=== PATIENT | female | born 1945 | race Caucasian/White ===

== ENCOUNTER 2020-02-07 09:16 | Emergency (ER) | payer MEDICARE, BC ==
--- NOTE | 2020-02-07 09:41 | EDM.PDOC ---
ED HPI GENERAL MEDICAL PROBLEM - General Chief Complaint: Upper Extremity Injury/Pain Stated Complaint: HURT ARM 02/07/20 Time Seen by Provider: 02/07/20 09:37 Source of Information: Reports: Patient History Limitations: Reports: No Limitations - History of Present Illness INITIAL COMMENTS - FREE TEXT/NARRATIVE: Fell getting out of her boat landing on outstretched left arm. c/o pain and deformity to left wrist area. Onset: Today Onset Date: 02/07/20 Onset Time: 08:00 Location: Reports: Upper Extremity, Left Front/Back Body Image: 1 - left wrist Quality: Reports: Sharp Severity: Moderate Improves with: Reports: Rest Worsens with: Reports: Movement Associated Symptoms: Reports: No Other Symptoms Left Wrist Pain Score (Numeric/FACES): 9 - Related Data Allergies Allergy/AdvReac Type Severity Reaction Status Date / Time No Known Allergies Allergy Verified 02/07/20 09:38 Home Meds: Home Meds Losartan [Cozaar] 50 mg PO DAILY 02/07/20 [History] Review of Systems - Review of Systems Review Of Systems: See Below Constitutional: Reports: No Symptoms Eyes: Reports: No Symptoms Ears: Reports: No Symptoms Nose: Reports: No Symptoms Mouth/Throat: Reports: No Symptoms Respiratory: Reports: No Symptoms Cardiovascular: Reports: No Symptoms. Denies: Chest Pain Musculoskeletal: Reports: Arm Pain Skin: Reports: No Symptoms Neurological: Reports: No Symptoms Psychiatric: Reports: No Symptoms ED EXAM, GENERAL - Physical Exam Exam: See Below Exam Limited By: No Limitations General Appearance: Alert, WD/WN, No Apparent Distress Head: Atraumatic, Normocephalic Neck: Normal Inspection, Supple Respiratory/Chest: No Respiratory Distress, Lungs Clear Cardiovascular: Normal Peripheral Pulses, Regular Rate, Rhythm Back Exam: Normal Inspection Extremities: Arm Pain, Limited Range of Motion. No: Normal Inspection, Normal Range of Motion Neurological: Alert, Oriented, CN II-XII Intact Psychiatric: Normal Affect Skin Exam: Warm Course - Vital Signs Last Recorded V/S: Last Vital Signs Temp 97.8 F 02/07/20 09:25 Pulse 82 02/07/20 09:25 Resp 16 02/07/20 09:25 BP 191/111 H 02/07/20 09:25 Pulse Ox 98 02/07/20 09:25 - Orders/Labs/Meds Orders: Active Orders 24 hr Category Date Time Status Wrist Comp Min 3V Lt [CR] Stat Exams 02/07/20 09:42 Taken Meds: Medications Discontinued Medications Generic Name Dose Route Start Last Admin Trade Name Michelle PRN Reason Stop Dose Admin Hydrocodone Bitart/Acetaminophen 1 tab 02/07/20 09:43 [place] 325-10 Mg PO 02/07/20 09:44 ONETIME ONE Hydrocodone Bitart/Acetaminophen Confirm 02/07/20 10:48 [place] 325-10 Mg Administered 02/07/20 10:49 Dose 1 tab .ROUTE .STK-MED ONE - Re-Assessments/Exams Free Text/Narrative Re-Assessment/Exam: 02/07/20 09:44 Fall prior to arrival. Fx distal radius ulna; splinted and will be referred to ortho after results and consult with ortho in [place], [place] Free Text/Narrative Re-Assessment/Exam: 02/07/20 10:[address] Arboleda (orth) who advised that pt be transferred to [facility] and call him when she gets there for OR reduction procedure. Free Text/Narrative Re-Assessment/Exam: 02/07/20 10:42 Dr Williamson (our facility [facility] Doctor) gave regional block and helped reduce fracture. Pt was placed in [place] Splint and discharged from ER with instructions to go directly to [facility]. I spoke with Dr Marques (ER doc) who will be expecting her and calling Dr Sherman (Orthopedist) upon her arrival to ER. Pt is remain NPO until evaluated by Dr Osei. Departure - Departure Time of Disposition: 10:45 Disposition: DC/Tfer to Acute Hospital 02 Condition: Good Clinical Impression: Fracture of radius and ulna - Discharge Information Instructions: Cast or Splint Care, Adult, [id number], Closed Reduction for Wrist or Forearm Referrals: PCP,None [Primary Care Provider] - Forms: ED Department Discharge Additional Instructions: Nothing to eat or drink. Keep applied splint and sling in place at all times. Present to [facility] and you will be seen by orthopedics for surgical fixation of affected wrist/hand. Call with any questions. Sepsis Event Note (ED) - Focused Exam Vital Signs: Vital Signs Temp Pulse Resp BP Pulse Ox 02/07/20 09:25 97.8 F 82 16 191/111 H 98 - My Orders Last 24 Hours: My Active Orders 02/07/20 09:42 Wrist Comp Min 3V Lt [CR] Stat - Assessment/Plan Last 24 Hours: My Active Orders 02/07/20 09:42 Wrist Comp Min 3V Lt [CR] Stat
[2020-02-07] MEDS ORDERED: Acetaminophen/HYDROcodone 325-10 MG Tab PO ONE (09:43)
[2020-02-07] MEDS ORDERED: Acetaminophen/HYDROcodone 325-10 MG Tab ONE (10:48)
--- NOTE | 2020-02-08 14:12 | CR ---
Date of Service: 02/07/20 Clinical Data: fall wrist deformity LEFT WRIST: No priors. There is an impacted, comminuted, interarticular fracture through distal radius. There is mild dorsal angulation and displacement of the distal fragments with respect to the proximal. There is a faint lucency through the distal ulna also suspicious for a nondisplaced fracture. No other acute abnormalities. There are osteoarthritic changes involving multiple joints. [id number] [facility]
== END 2020-02-07 10:55 ==
LOC: LB.ED 09:16
DX: S52.592A Other fractures of lower end of left radius, initial encounter for closed fracture (principal); S52.602A Unspecified fracture of lower end of left ulna, initial encounter for closed fracture; Z79.899 Other long term (current) drug therapy; V92.09XA Drowning and submersion due to fall off unspecified watercraft, initial encounter
CPT/HCPCS: 29125; 73110; 99284; A9270